=== PATIENT | male | born 1965 | race African-American/Black ===

== ENCOUNTER 2017-07-19 09:17 | Emergency (ER) | payer SELFPAY ==
[~2017-07-19] VITALS: Ht 182.9 cm; Wt 87.0 kg
[2017-07-19 11:23] LABS: BASOPHILS % 0.6 % (0.0-2.0); HEMATOCRIT. 37.9 % (42.0-52.0); HEMOGLOBIN. 12.9 g/dL (14.0-18.0); LYMPHOCYTES % 49.4 % (20.0-50.0); MEAN CORPUSCULAR HEMOGLOBIN 30.4 pg (28.0-32.0); MEAN CORPUSCULAR VOLUME 89.4 fL (80.0-94.0); MEAN PLATELET VOLUME 6.8 fl (7.4-10.4); MONOCYTES % 8.5 % (2.0-8.0); NEUTROPHILS % 40.5 % (40.0-76.0); PLATELET 299 x1000/uL (130-400); RED BLOOD CELL COUNT 4.24 mill/uL (4.7-6.1)
[2017-07-19 11:36] LABS: CARBON DIOXIDE 30 mEq/L (21-32); CHLORIDE 105 mEq/L (98-107)
[2017-07-19 11:39] LABS: TROPONIN I < 0.02 ng/mL (0.00-0.04)
[2017-07-19 12:37] VITALS: BP 115/82
== END 2017-07-19 12:38 | disposition home or self-care (01) ==
LOC: ER 11:04
DX: R07.9 Chest pain, unspecified (principal); Z88.0 Allergy status to penicillin; Z85.46 Personal history of malignant neoplasm of prostate; F17.210 Nicotine dependence, cigarettes, uncomplicated; F12.10 Cannabis abuse, uncomplicated
CPT/HCPCS: 36415; 71010; 80053; 84484; 85025; 85610; 93005; 99285; Z7610

== ENCOUNTER 2021-09-22 17:40 | Inpatient (IN) | payer MEDICAID ==
[~2021-09-22] VITALS: Ht 182.9 cm; Wt 89.6 kg
[2021-09-22] MEDS ORDERED: NITROGLYCERIN OINT 1GM/INCH UDPKT TD ONE (18:15)
[2021-09-22 18:44] LABS: BASOPHILS % 0.8 % (0.0-2.0); EOSINOPHILS % 0.2 % (0.0-5.0); HEMATOCRIT. 37.7 % (42.0-52.0); HEMOGLOBIN. 12.6 g/dL (14.0-18.0); LYMPHOCYTES % 45.8 % (20.0-50.0); MEAN CORPUSCULAR HEMOGLOBIN 30.1 pg (28.0-32.0); MEAN CORPUSCULAR VOLUME 89.9 fL (80.0-94.0); MEAN PLATELET VOLUME 6.4 fl (7.4-10.4); MONOCYTES % 5.1 % (2.0-8.0); NEUTROPHILS % 48.1 % (40.0-76.0); PLATELET 347 x1000/uL (130-400); RED BLOOD CELL COUNT 4.19 mill/uL (4.7-6.1); RED CELL DISTRIBUTION WIDTH 15.3 % (11.6-14.6)
[2021-09-22 18:56] LABS: CHLORIDE 110 mEq/L (98-107)
[2021-09-22 19:05] LABS: CREATINE KINASE 179 IU/L (39-308)
[2021-09-22 22:30] VITALS: BP 102/45
[2021-09-22] MEDS ORDERED: MORPHINE SULFATE 2 MG/ML CPJ (NOT FOR IM USE) IV PRN (23:30)
[2021-09-22] MEDS ORDERED: ONDANSETRON HCL 4MG/2ML INJ IV PRN (23:30)
[2021-09-22] MEDS ORDERED: ATOR40TA70 PO (23:37)
[2021-09-22] MEDS ORDERED: OMEP40CA20 PO (23:37)
[2021-09-22] MEDS ORDERED: NALOXONE HCL 0.4 MG/ML 1ML VIAL IV PRN (23:45)
[2021-09-23] VITALS (7 sets, daily range): BP systolic 99–121; BP diastolic 45–80
[2021-09-23] MEDS: SODIUM CHLORIDE 0.9% 1,000 ML IV SCH ×3 (00:15→21:29)
[2021-09-23 02:47] LABS: BASOPHILS % 0.5 % (0.0-2.0); EOSINOPHILS % 0.8 % (0.0-5.0); HEMATOCRIT. 35.5 % (42.0-52.0); LYMPHOCYTES % 56.3 % (20.0-50.0); MEAN CORPUSCULAR HEMOGLOBIN 30.4 pg (28.0-32.0); MEAN CORPUSCULAR VOLUME 89.7 fL (80.0-94.0); MEAN PLATELET VOLUME 6.4 fl (7.4-10.4); MONOCYTES % 7.6 % (2.0-8.0); NEUTROPHILS % 34.8 % (40.0-76.0); PLATELET 333 x1000/uL (130-400); RED BLOOD CELL COUNT 3.95 mill/uL (4.7-6.1)
[2021-09-23 02:53] LABS: CHLORIDE 112 mEq/L (98-107)
[2021-09-23 03:00] LABS: LDL CHOLESTEROL 153 mg/dL (5-100)
[2021-09-23 03:01] LABS: HDL CHOLESTEROL 63 mg/dL (40-59)
[2021-09-23] MEDS: OMEPRAZOLE 20MG CAPSULE EXTENDED RELEASE PO SCH ×3 (06:34→21:29)
[2021-09-23] MEDS: ENOXAPARIN 40MG/0.4ML SYR SUBCUT SCH (08:46)
[2021-09-23] MEDS ORDERED: REGADENOSON 0.4 MG/5 ML IV SCH (12:15)
[2021-09-23] MEDS ORDERED: REGADENOSON 0.4 MG/5 ML IV NR (15:15)
[2021-09-23] MEDS ORDERED: ATORVASTATIN CALCIUM 20MG TABLET PO SCH (21:00)
[2021-09-23] MEDS: ASPIRIN 81MG TABLET PO SCH (21:28)
[2021-09-24] VITALS: BP 97/60
[2021-09-24 04:00] VITALS: BP 102/66
[2021-09-24] MEDS: OMEPRAZOLE 20MG CAPSULE EXTENDED RELEASE PO SCH (05:27)
[2021-09-24] MEDS: ENOXAPARIN 40MG/0.4ML SYR SUBCUT SCH (08:22)
[2021-09-24 08:37] VITALS: BP 111/70
[2021-09-24] MEDS: ASPIRIN 81MG TABLET PO SCH (09:00)
[2021-09-24] MEDS ORDERED: REGADENOSON 0.4 MG/5 ML IV ONE (11:10)
[2021-09-24 12:00] VITALS: BP 126/77
[2021-09-24 13:52] VITALS: BP 126/77
[2021-09-24] MEDS: SODIUM CHLORIDE 0.9% 1,000 ML IV SCH (15:43)
[2021-09-24 16:00] VITALS: BP 151/74
== END 2021-09-24 16:15 | disposition home or self-care (01) | DRG 203 ==
LOC: ER 17:40 → EDBEDREQTM 20:14 → EDBEDREQ 20:15 → ENRESERV 21:00 → 7EST 22:37
PROVIDERS: ADMIT Internal Medicine; ATTEND Internal Medicine
DX: M94.0 Chondrocostal junction syndrome [Tietze] (principal); E87.8 Other disorders of electrolyte and fluid balance, not elsewhere classified; D64.9 Anemia, unspecified; E78.00 Pure hypercholesterolemia, unspecified; E78.5 Hyperlipidemia, unspecified; Z20.822 Contact with and (suspected) exposure to COVID-19; F12.90 Cannabis use, unspecified, uncomplicated; Z79.899 Other long term (current) drug therapy; Z85.46 Personal history of malignant neoplasm of prostate; Z88.0 Allergy status to penicillin
CPT/HCPCS: 36415; 71045; 78452; 80048; 80053; 80061; 82550; 83036; 84484; 85025; 85379; 87426; 93005; 93017; 93306; 99285; A9500; J1650; J2270; J2785; J7030